=== PATIENT | female | born 2005 | race Two or more races ===

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

== ENCOUNTER 2024-02-13 08:39 | Outpatient (CLI) | payer OTHER ==
[~2024-02-13 08:39] MED LIST: FOLIC ACID0.8 M1 PO; PRENATABS RX T1 EACH PO
== END 2024-02-13 08:40 | disposition home or self-care (01) ==
LOC: PRENATAL 08:39
PROVIDERS: ATTEND Obstetrics & Gynecology Maternal & Fetal Medicine
DX: O26.849 Uterine size-date discrepancy, unspecified trimester (principal); O28.5 Abnormal chromosomal and genetic finding on antenatal screening of mother; Z3A.17 17 weeks gestation of pregnancy

== ENCOUNTER 2024-02-13 08:52 | Outpatient (CLI) | payer OTHER | END 2024-02-13 08:54 | disposition home or self-care (01) | LOC: LAB | PROVIDERS: ATTEND Obstetrics & Gynecology Maternal & Fetal Medicine | DX: Z00.00 Encounter for general adult medical examination without abnormal findings (principal) ==

== ENCOUNTER 2024-03-02 09:19 | Outpatient (CLI) | payer OTHER | END 2024-03-02 09:20 | disposition home or self-care (01) | LOC: PRENATAL 09:19 | PROVIDERS: ATTEND Obstetrics & Gynecology Maternal & Fetal Medicine | DX: O35.9XX0 Maternal care for (suspected) fetal abnormality and damage, unspecified, not applicable or unspecified (principal); O35.3XX0 Maternal care for (suspected) damage to fetus from viral disease in mother, not applicable or unspecified; O44.00 Complete placenta previa NOS or without hemorrhage, unspecified trimester; O28.5 Abnormal chromosomal and genetic finding on antenatal screening of mother; O44.02 Complete placenta previa NOS or without hemorrhage, second trimester; Z3A.20 20 weeks gestation of pregnancy ==

== ENCOUNTER → 2024-03-31 08:28 | Outpatient (CLI) | payer OTHER | END | disposition home or self-care (01) | LOC: PRENATAL 08:28 | PROVIDERS: ATTEND Obstetrics & Gynecology Maternal & Fetal Medicine | DX: O26.849 Uterine size-date discrepancy, unspecified trimester (principal); O36.8199 Decreased fetal movements, unspecified trimester, other fetus; O28.5 Abnormal chromosomal and genetic finding on antenatal screening of mother; Z3A.24 24 weeks gestation of pregnancy ==

== ENCOUNTER → 2024-04-28 09:08 | Outpatient (CLI) | payer OTHER | END | disposition home or self-care (01) | LOC: PRENATAL 09:08 | PROVIDERS: ATTEND Obstetrics & Gynecology Maternal & Fetal Medicine | DX: O26.849 Uterine size-date discrepancy, unspecified trimester (principal); O36.8199 Decreased fetal movements, unspecified trimester, other fetus; O85 Puerperal sepsis; Z3A.28 28 weeks gestation of pregnancy ==

== ENCOUNTER → 2024-06-08 11:00 | Outpatient (CLI) | payer OTHER | END | disposition home or self-care (01) | LOC: PRENATAL 11:00 | PROVIDERS: ATTEND Obstetrics & Gynecology Maternal & Fetal Medicine | DX: O26.849 Uterine size-date discrepancy, unspecified trimester (principal); O36.8199 Decreased fetal movements, unspecified trimester, other fetus; O28.5 Abnormal chromosomal and genetic finding on antenatal screening of mother; Z3A.35 35 weeks gestation of pregnancy ==

== ENCOUNTER 2024-07-09 13:15 | Inpatient (IN) | payer OTHER ==
[~2024-07-09] VITALS: Ht 157.5 cm; Wt 62.6 kg
[2024-07-13] VITALS (7 sets, daily range): BP systolic 116–132; BP diastolic 55–76
[2024-07-13] MEDS ORDERED: AMPICILLIN SODIUM 2,000 MG VIAL ONE (06:18)
[2024-07-13] MEDS ORDERED: RINGERS SOLUTION,LACTATED 1,000 ML IV SCH (06:30)
[2024-07-13] MEDS ORDERED: AMPICILLIN SODIUM 2,000 MG VIAL IV ONE (06:30)
[2024-07-13 07:14] LABS: BASO % 0.4 % (0.1-1.2); EOS # 0.12 (0.04-0.54); EOS % 1.1 % (0.7-7.0); HEMATOCRIT 29.1 % (34.1-44.9); HEMOGLOBIN 9.5 g/dL (11.2-15.7); LYMPH # 1.76 (1.18-3.74); LYMPH % 16.6 % (19.3-53.1); MEAN CORPUSCULAR HEMOGLOBIN 24.7 pg (25.6-32.2); MONO # 0.68 (0.24-0.82); MONO % 6.4 % (4.7-12.5); NEUT # 7.95 (1.56-6.13); NEUT % 75.2 % (34.0-71.1); PLATELET COUNT 168 K/uL (163-369); RED BLOOD COUNT 3.85 M/uL (3.93-5.22); RED CELL DISTRIBUTION WIDTH 14.1 % (11.6-14.4)
[2024-07-13 07:29] LABS: URINE APPEARANCE Cloudy; URINE BILIRRUBIN Negative (NEGATIVE); URINE BLOOD Negative; URINE COLOR Yellow; URINE GLUCOSE Negative (NEGATIVE); URINE KETONE Trace (NEGATIVE); URINE LEUKOCYTE Moderate; URINE NITRATE Negative; URINE PROTEIN Trace (NEGATIVE)
[2024-07-13 07:34] LABS: URINE BACTERIA 2638.9 uL (0.0-1933); URINE RBC 4.8 uL (0.0-20.8); URINE WBC 167.3 uL (0.0-23.2)
[2024-07-13 07:37] LABS: INR < 0.93; PARTIAL THROMBOPLASTIN TIME 27.1 SECONDS (22.0-34.0); PROTHROMBIN TIME 9.8 SECONDS (9.0-11.5)
[2024-07-13] MEDS ORDERED: MORPHINE SULFATE 4 MG/ML VIAL IV ONE (07:45)
[2024-07-13] MEDS ORDERED: OXYTOCIN 500 ML IV SCH (07:45)
[2024-07-13] MEDS ORDERED: OXYTOCIN 20 UNITS/500ML RL PIGGYBAG IV ONE (07:53)
[2024-07-13 08:07] LABS: URINE CAST 0.14 uL (0.0-1.40)
[2024-07-13] MEDS ORDERED: AMPICILLIN SODIUM 1,000 MG VIAL ONE (08:09)
[2024-07-13] MEDS ORDERED: AMPICILLIN SODIUM 1,000 MG VIAL IV SCH (09:00)
[2024-07-13] MEDS ORDERED: ERYTHROMYCIN BASE OPHT 1GM EACH TUBE OP ONE ×2 (09:00→10:30)
[2024-07-13] MEDS ORDERED: OXYTOCIN 20 UNITS/1000ML RL PIGGYBAG IV ONE ×3 (09:00→10:30)
[2024-07-13] MEDS ORDERED: CHLORHEXIDINE GLUCONATE 120 ML BOTTLE TOP ONE ×2 (09:01→10:30)
[2024-07-13] MEDS ORDERED: LIDOCAINE HCL 1% 10ML VIAL ONE (09:01)
[2024-07-13] MEDS ORDERED: IBUprofen 400 MG TABLET PO PRN (09:45)
[2024-07-13 17:42] LABS: BASO % 0.3 % (0.1-1.2); EOS # 0.07 (0.04-0.54); EOS % 0.4 % (0.7-7.0); HEMATOCRIT 28.9 % (34.1-44.9); HEMOGLOBIN 9.3 g/dL (11.2-15.7); LYMPH # 1.53 (1.18-3.74); LYMPH % 9.3 % (19.3-53.1); MEAN CORPUSCULAR HEMOGLOBIN 24.5 pg (25.6-32.2); MONO # 1.25 (0.24-0.82); MONO % 7.6 % (4.7-12.5); NEUT # 13.43 (1.56-6.13); NEUT % 81.9 % (34.0-71.1); PLATELET COUNT 162 K/uL (163-369); RED BLOOD COUNT 3.79 M/uL (3.93-5.22); RED CELL DISTRIBUTION WIDTH 14.1 % (11.6-14.4)
[2024-07-14 00:52] VITALS: BP 108/64
[2024-07-14 08:00] VITALS: BP 126/77
[2024-07-14] MEDS ORDERED: PNV,CALCIUM 72/IRON/FOLIC ACID 1 TAB TABLET PO SCH (09:00)
[2024-07-14 16:08] VITALS: BP 124/76
[2024-07-15 02:05] VITALS: BP 114/68
[2024-07-15 08:00] VITALS: BP 127/79
== END 2024-07-15 11:23 | disposition home or self-care (01) | DRG 807 ==
LOC: LDR 07-13 06:20 → OB/GYN 07-13 06:20
PROVIDERS: ADMIT Obstetrics & Gynecology; ATTEND Obstetrics & Gynecology
PROC: 10E0XZZ Delivery of Products of Conception, External Approach (ICD-10-PCS; principal; 2024-07-13)
PROC: 4A1HXCZ Monitoring of Products of Conception, Cardiac Rate, External Approach (ICD-10-PCS; 2024-07-13)
DX: O99.824 Streptococcus B carrier state complicating childbirth (principal); Z37.0 Single live birth; Z3A.39 39 weeks gestation of pregnancy